=== PATIENT | male | born 1960 | race American Indian/Alaskan Native ===

== ENCOUNTER 2018-03-23 17:03 | Emergency (ER) | payer MEDICARE ==
[2018-03-23] MEDS ORDERED: Clindamycin Phosphate 900 MG in Sodium Chloride 0.9% 100 ML IV ONE (19:10)
[2018-03-23] MEDS ORDERED: Ketorolac 30 MG/ML SDV IVPUSH ONE (19:11)
--- NOTE | 2018-03-23 19:14 | EDM.PDOC ---
ED HPI GENERAL MEDICAL PROBLEM - General Chief Complaint: Lower Extremity Injury/Pain Stated Complaint: SWOLLEN LEG [id number] Time Seen by Provider: 03/23/18 19:11 Source of Information: Reports: Patient History Limitations: Reports: No Limitations - History of Present Illness INITIAL COMMENTS - FREE TEXT/NARRATIVE: c/o onset left low leg redness few days ago, worse today. - Related Data Allergies Allergy/AdvReac Type Severity Reaction Status Date / Time No Known Allergies Allergy Verified 03/23/18 17:25 Home Meds: Home Meds . [No Known Home Meds] 03/23/18 [History] Past Medical History - Past Health History Medical/Surgical History: Denies Medical/Surgical History Social & Family History - Tobacco Use Smoking Status *Q: Never Smoker - Caffeine Use Caffeine Use: Reports: Soda, Tea - Recreational Drug Use Recreational Drug Use: No Review of Systems - Review of Systems Review Of Systems: ROS reveals no pertinent complaints other than HPI. ED EXAM, GENERAL - Physical Exam Exam: See Below Exam Limited By: No Limitations General Appearance: Alert, WD/WN, Mild Distress, Other (discomfort) Ears: Hearing Grossly Normal Throat/Mouth: Normal Voice, No Airway Compromise Head: Atraumatic Neck: Non-Tender, Full Range of Motion Respiratory/Chest: No Respiratory Distress Cardiovascular: Regular Rate, Rhythm GI/Abdominal: Soft, Non-Tender Extremities: Other (left low leg swollen erythematous warm no gross lymphagntitis, NV wnl, gait limited to pain) Neurological: Alert, Oriented, Normal Cognition, No Motor/Sensory Deficits Psychiatric: Flat Affect Skin Exam: Warm, Dry, Normal Color Lymphatic: No Adenopathy Course - Vital Signs Last Recorded V/S: Last Vital Signs Temp 37.1 C 03/23/18 20:33 Pulse 84 03/23/18 20:33 Resp 18 03/23/18 20:33 BP 196/104 H 03/23/18 20:33 Pulse Ox 98 03/23/18 20:33 - Orders/Labs/Meds Orders: Active Orders 24 hr Category Date Time Status CULTURE BLOOD [BC] Stat Lab 03/23/18 18:11 Received CULTURE BLOOD [BC] Stat Lab 03/23/18 18:40 Received Blood Culture x2 Reflex Set [OM.PC] Stat Oth 03/23/18 18:01 Ordered Labs: Laboratory Tests 03/23/18 03/23/18 03/23/18 Range/Units 18:11 18:11 18:11 WBC 8.2 (5.0-10.0) 10^3/uL RBC 4.74 (4.6-6.2) 10^6/uL Hgb 13.5 L (14.0-18.0) g/dL Hct 40.3 (40.0-54.0) % MCV 85.0 (80-100) fL MCH 28.5 (27.0-34.0) pg MCHC 33.5 (33.0-35.0) g/dL Plt Count 179 (150-450) 10^3/uL Neut % (Auto) 54.5 (42.2-75.2) % Lymph % (Auto) 36.0 (20.5-50.1) % [place] % (Auto) 7.0 (2-8) % Eos % (Auto) 2.3 (1.0-3.0) % Baso % (Auto) 0.2 (0.0-1.0) % Sodium (135-145) mmol/L Potassium (3.6-5.0) mmol/L Chloride (101-111) mmol/L Carbon Dioxide (21.0-31.0) mmol/L Anion Gap BUN (7-18) mg/dL Creatinine (0.6-1.3) mg/dL Est Cr Clr Drug Dosing Estimated GFR (MDRD) BUN/Creatinine Ratio Glucose (74-105) mg/dL Lactic Acid 1.3 (0.5-2.2) mmol/L Calcium (8.4-10.2) mg/dl Total Bilirubin (0.2-1.0) mg/dL AST (10-42) IU/L ALT (10-60) IU/L Alkaline Phosphatase (42-121) IU/L Troponin I < 0.02 (0.00-0.02) ng/ml Total Protein (6.7-8.2) g/dl Albumin (3.2-5.5) g/dl Globulin Albumin/Globulin Ratio Urine Color (YELLOW) Urine Appearance (CLEAR) Urine pH (5.0-9.0) Ur Specific [place] (1.005-1.030) Urine Protein (NEGATIVE) Urine Glucose (UA) (NEGATIVE) Urine Ketones (NEGATIVE) Urine Occult Blood (NEGATIVE) Urine Nitrite (NEGATIVE) Urine Bilirubin (NEGATIVE) Urine Urobilinogen (0.2-1.0) mg/dL Ur Leukocyte Esterase (NEGATIVE) Urine RBC /HPF Urine WBC (0-5/HPF) /HPF Ur Epithelial Cells /HPF Urine Bacteria (0-FEW/HPF) /HPF 03/23/18 03/23/18 Range/Units 18:11 19:21 WBC (5.0-10.0) 10^3/uL RBC (4.6-6.2) 10^6/uL Hgb (14.0-18.0) g/dL Hct (40.0-54.0) % MCV (80-100) fL MCH (27.0-34.0) pg MCHC (33.0-35.0) g/dL Plt Count (150-450) 10^3/uL Neut % (Auto) (42.2-75.2) % Lymph % (Auto) (20.5-50.1) % [place] % (Auto) (2-8) % Eos % (Auto) (1.0-3.0) % Baso % (Auto) (0.0-1.0) % Sodium 142 (135-145) mmol/L Potassium 3.6 (3.6-5.0) mmol/L Chloride 109 (101-111) mmol/L Carbon Dioxide 25.0 (21.0-31.0) mmol/L Anion Gap 11.6 BUN 12 (7-18) mg/dL Creatinine 1.4 H (0.6-1.3) mg/dL Est Cr Clr Drug Dosing TNP Estimated GFR (MDRD) 53 BUN/Creatinine Ratio 8.57 Glucose 110 H (74-105) mg/dL Lactic Acid (0.5-2.2) mmol/L Calcium 8.7 (8.4-10.2) mg/dl Total Bilirubin 0.6 (0.2-1.0) mg/dL AST 27 (10-42) IU/L ALT 27 (10-60) IU/L Alkaline Phosphatase 117 (42-121) IU/L Troponin I (0.00-0.02) ng/ml Total Protein 7.5 (6.7-8.2) g/dl Albumin 3.7 (3.2-5.5) g/dl Globulin 3.8 Albumin/Globulin Ratio 0.97 Urine Color Yellow (YELLOW) Urine Appearance Clear (CLEAR) Urine pH 6.5 (5.0-9.0) Ur Specific [place] 1.015 (1.005-1.030) Urine Protein >=300 H (NEGATIVE) Urine Glucose (UA) Negative (NEGATIVE) Urine Ketones Negative (NEGATIVE) Urine Occult Blood Small H (NEGATIVE) Urine Nitrite Negative (NEGATIVE) Urine Bilirubin Negative (NEGATIVE) Urine Urobilinogen 0.2 (0.2-1.0) mg/dL Ur Leukocyte Esterase Negative (NEGATIVE) Urine RBC 5-10 H /HPF Urine WBC 0-5 (0-5/HPF) /HPF Ur Epithelial Cells Few /HPF Urine Bacteria Few (0-FEW/HPF) /HPF Meds: Medications Discontinued Medications Generic Name Dose Route Start Last Admin Trade Name Freq PRN Reason Stop Dose Admin Clonidine HCl 0.1 mg 03/23/18 19:50 03/23/18 19:57 Catapres PO 03/23/18 19:51 0.1 mg ONETIME ONE Administration Clindamycin Phosphate 900 mg/ 106 mls @ 200 mls/hr 03/23/18 19:10 03/23/18 19 :18 Sodium Chloride IV 03/23/18 19:41 200 mls/hr ONETIME ONE Administration Iopamidol 75 ml 03/23/18 19:30 03/23/18 19:49 Isovue-300 (61%) IVPUSH 03/23/18 19:31 100 ml ONETIME ONE Administration Ketorolac Tromethamine 15 mg 03/23/18 19:11 03/23/18 19:18 Toradol IVPUSH 03/23/18 19:12 15 mg ONETIME ONE Administration - Re-Assessments/Exams Free Text/Narrative Re-Assessment/Exam: 03/23/18 21:[address] Ernandez who arrived and evaluated pt and discussed Tx plan and they all agreed. Departure - Departure Time of Disposition: 21:39 Disposition: Home, Self-Care 01 Condition: Fair Clinical Impression: Cellulitis Qualifiers: Site of cellulitis: extremity Site of cellulitis of extremity: lower extremity Laterality: left Qualified Code(s): L03.116 - Cellulitis of left lower limb - Discharge Information Instructions: Cellulitis, Adult, [id number] Forms: ED Department Discharge Additional Instructions: 1) elevate leg as much as possible 2) take tylenol or motrin as needed 3) follow up at clinic for HIGH BLOOD PRESSURE. 4) return if there is any change or concern rx given; clindamycin 150mg qid x 40 catapress 0.1mg daily x 6
[2018-03-23 19:25] LABS: ANION GAP 11.6; CHLORIDE,CL 109 mmol/L (101-111); SODIUM,NA 142 mmol/L (135-145)
[2018-03-23] MEDS ORDERED: Iopamidol 612 MG/ML 75 ML Bottle IVPUSH ONE (19:30)
[2018-03-23] MEDS ORDERED: cloNIDine 0.1 MG Tab PO ONE (19:50)
== END 2018-03-23 21:49 | disposition home or self-care (01) ==
LOC: DL.ED 17:03
DX: L03.116 Cellulitis of left lower limb (principal)
CPT/HCPCS: 36415; 73701; 80053; 81001; 83605; 84484; 85025; 87040; 96365; 96375; 99284; A9270; J1885; J3490; J7050; Q9967; 99283

== ENCOUNTER 2018-04-03 12:19 | Emergency (ER) | payer MEDICARE, OTHER ==
[2018-04-03 13:21] LABS: ANION GAP 12.7; CHLORIDE,CL 109 mmol/L (101-111); SODIUM,NA 139 mmol/L (135-145)
--- NOTE | 2018-04-03 14:08 | EDM.PDOC ---
<HumphreysBrit - Last Filed: 04/04/18 03:08> ED HPI GENERAL MEDICAL PROBLEM - General Chief Complaint: General Stated Complaint: IN BY AMBULANCE Time Seen by Provider: 04/03/18 13:50 - Related Data Allergies Allergy/AdvReac Type Severity Reaction Status Date / Time No Known Allergies Allergy Verified 03/23/18 17:25 Home Meds: Home Meds Aspirin [Adult Low Dose Aspirin EC] 81 mg PO DAILY 04/03/18 [History] Furosemide 20 mg PO DAILY 04/03/18 [History] Losartan [Cozaar] 50 mg PO DAILY 04/03/18 [History] Course - Vital Signs Last Recorded V/S: Last Vital Signs Temp 36.7 C 04/03/18 20:38 Pulse 77 04/03/18 21:09 Resp 17 04/03/18 21:09 BP 179/108 H 04/03/18 21:14 Pulse Ox 100 04/03/18 21:09 - Orders/Labs/Meds Labs: Laboratory Tests 04/03/18 04/03/18 Range/Units 12:55 12:55 WBC 7.6 (5.0-10.0) 10^3/uL RBC 5.04 (4.6-6.2) 10^6/uL Hgb 14.2 (14.0-18.0) g/dL Hct 42.7 (40.0-54.0) % MCV 84.7 (80-100) fL MCH 28.2 (27.0-34.0) pg MCHC 33.3 (33.0-35.0) g/dL Plt Count 159 (150-450) 10^3/uL Neut % (Auto) 65.9 (42.2-75.2) % Lymph % (Auto) 27.2 (20.5-50.1) % [place] % (Auto) 4.8 (2-8) % Eos % (Auto) 1.6 (1.0-3.0) % Baso % (Auto) 0.5 (0.0-1.0) % Sodium 139 (135-145) mmol/L Potassium 3.7 (3.6-5.0) mmol/L Chloride 109 (101-111) mmol/L Carbon Dioxide 21.0 (21.0-31.0) mmol/L Anion Gap 12.7 BUN 18 (7-18) mg/dL Creatinine 1.3 (0.6-1.3) mg/dL Est Cr Clr Drug Dosing 53.76 mL/min Estimated GFR (MDRD) 57 BUN/Creatinine Ratio 13.84 Glucose 99 (74-105) mg/dL Calcium 8.8 (8.4-10.2) mg/dl Total Bilirubin 1.1 H (0.2-1.0) mg/dL AST 40 (10-42) IU/L ALT 44 (10-60) IU/L Alkaline Phosphatase 114 (42-121) IU/L Troponin I < 0.02 (0.00-0.02) ng/ml Total Protein 7.4 (6.7-8.2) g/dl Albumin 3.9 (3.2-5.5) g/dl Globulin 3.5 Albumin/Globulin Ratio 1.11 Meds: Medications Discontinued Medications Generic Name Dose Route Start Last Admin Trade Name Freq PRN Reason Stop Dose Admin Hydralazine HCl 10 mg 04/03/18 18:23 04/03/18 18:40 Apresoline IVPUSH 04/03/18 18:24 10 mg ONETIME ONE Administration Labetalol HCl 10 mg 04/03/18 19:28 04/03/18 19:43 Normodyne IVPUSH 04/03/18 19:29 10 mg ONETIME ONE Administration Protocol Labetalol HCl 10 mg 04/03/18 20:35 04/03/18 20:37 Normodyne IVPUSH 04/03/18 20:36 10 mg ONETIME ONE Administration Protocol Metoprolol Tartrate 25 mg 04/03/18 14:01 04/03/18 14:10 Lopressor PO 04/03/18 14:02 25 mg ONETIME ONE Administration Metoprolol Tartrate 25 mg 04/03/18 16:16 04/03/18 16:26 Lopressor PO 04/03/18 16:17 25 mg ONETIME ONE Administration - Re-Assessments/Exams Free Text/Narrative Re-Assessment/Exam: 04/04/18 03:07 Discussed patient case with Dr. Rosa who agreed to accept the patient for transfer. Departure - Departure Time of Disposition: 21:37 Disposition: DC/Tfer to Acute Hospital 02 Condition: Fair Clinical Impression: Hypertension Qualifiers: Hypertension type: unspecified Qualified Code(s): I10 - Essential (primary) hypertension - Discharge Information *PRESCRIPTION DRUG MONITORING PROGRAM REVIEWED*: No *COPY OF PRESCRIPTION DRUG MONITORING REPORT IN PATIENT BRAYDON: No Referrals: Aron Bolton MD [Primary Care Provider] - Forms: ED Department Discharge, Interfacility Transfer L[place] <Kervin Pizarro - Last Filed: 04/06/18 09:08> ED HPI GENERAL MEDICAL PROBLEM - General Source of Information: Reports: Patient History Limitations: Reports: No Limitations - History of Present Illness INITIAL COMMENTS - FREE TEXT/NARRATIVE: This 57 yo male patient was brought to the ED by [facility] due to high blood pressure. The patient reports that they had a home health nurse visit his home. She advised the patient that his blood pressure was too high and advised him to go to the ED. The patient's family report that the patient was started on Losartan, HCTZ and aspirin within the past week. The patient reports that he has an appointment with the computer software engineer next month, but does not have a scheduled follow-up appointment with Dr. Bolton with [facility]. Onset: Today Duration: Constant Location: Reports: Other Quality: Reports: Other Severity: Mild Improves with: Reports: None Worsens with: Reports: None Associated Symptoms: Reports: No Other Symptoms Past Medical History - Past Health History Medical/Surgical History: Denies Medical/Surgical History HEENT History: Reports: None Cardiovascular History: Reports: Hypertension Respiratory History: Reports: None Gastrointestinal History: Reports: None Genitourinary History: Reports: None Musculoskeletal History: Reports: None Neurological History: Reports: None Psychiatric History: Reports: None Endocrine/Metabolic History: Reports: None Hematologic History: Reports: None Immunologic History: Reports: None Oncologic (Cancer) History: Reports: None Dermatologic History: Reports: None Social & Family History - Tobacco Use Smoking Status *Q: Never Smoker Second Hand Smoke Exposure: No - Caffeine Use Caffeine Use: Reports: Tea - Recreational Drug Use Recreational Drug Use: No ED ROS GENERAL - Review of Systems Review Of Systems: ROS reveals no pertinent complaints other than HPI. ED EXAM, GENERAL - Physical Exam Exam: See Below Exam Limited By: No Limitations General Appearance: Alert, WD/WN, No Apparent Distress Eye Exam: Bilateral Eye: EOMI, Normal Inspection, PERRL Ears: Normal External Exam, Normal Canal, Hearing Grossly Normal, Normal TMs Nose: Normal Inspection, Normal Mucosa, No Blood Throat/Mouth: Normal Inspection, Normal Lips, Normal Teeth, Normal Gums, Normal Oropharynx, Normal Voice, No Airway Compromise Head: Atraumatic, Normocephalic Neck: Normal Inspection, Supple, Non-Tender, Full Range of Motion Respiratory/Chest: No Respiratory Distress, Lungs Clear, Normal Breath Sounds, No Accessory Muscle Use, Chest Non-Tender Cardiovascular: Normal Peripheral Pulses, Regular Rate, Rhythm, No Edema, No Gallop, No JVD, No Murmur, No Rub GI/Abdominal: Normal Bowel Sounds, Soft, Non-Tender, No Organomegaly, No Distention, No Abnormal Bruit, No Mass (Male) Exam: Deferred Rectal (Males) Exam: Deferred Back Exam: Normal Inspection, Full Range of Motion, NT Extremities: Normal Inspection, Normal Range of Motion, Non-Tender, Normal Capillary Refill, No Pedal Edema Neurological: Alert, Oriented, CN II-XII Intact, Normal Cognition, Normal Gait, Normal Reflexes, No Motor/Sensory Deficits Psychiatric: Normal Affect, Normal Mood Skin Exam: Warm, Dry, Intact, Normal Color, No Rash Lymphatic: No Adenopathy
[2018-04-03] MEDS: Metoprolol Tartrate 25 MG Tab PO ONE ×2 (14:10→16:26)
[2018-04-03] MEDS: hydrALAZINE 20 MG/ML SDV IVPUSH ONE (18:40)
[2018-04-03] MEDS: Labetalol 100 MG/20 ML MDV IVPUSH ONE ×2 (19:43→20:37)
--- NOTE | 2018-04-04 08:45 | CR ---
Clinical history: 57-year-old male emergency department with "high blood pressure". Interpretation: Upright AP portable chest film unremarkable. Normal cardiac silhouette and left-sided aortic arch. No cephalization of vascular flow, signs of alveolar edema or dependent pleural fluid accumulation. No lung mass, hilar lymphadenopathy or focal lobar pneumonia. No atelectasis/collapse. No pneumothorax.
== END 2018-04-03 22:03 ==
LOC: DL.ED 12:19
DX: I10 Essential (primary) hypertension (principal); Z79.82 Long term (current) use of aspirin; Z79.899 Other long term (current) drug therapy
CPT/HCPCS: 36415; 71045; 80053; 84484; 85025; 93005; 93010; 96374; 96375; 96376; 99285; A9270; J0360; J3490

== ENCOUNTER 2025-06-05 06:22 | Day surgery (SDC) | payer MEDICARE, MEDICAID ==
[2025-06-05] MEDS ORDERED: Propofol 200 MG/20 ML SDV IV ONE (06:23)
[2025-06-05] MEDS: Lactated Ringers 1,000 ML IV SCH (06:45)
[2025-06-05] MEDS ORDERED: Propofol 200 MG/20 ML SDV ONE (09:38)
== END 2025-06-05 10:21 | disposition home or self-care (01) ==
LOC: DL.ENDO 06:22
PROVIDERS: ATTEND Internal Medicine Gastroenterology
DX: K29.50 Unspecified chronic gastritis without bleeding (principal); B96.81 Helicobacter pylori [H. pylori] as the cause of diseases classified elsewhere; K31.7 Polyp of stomach and duodenum; E66.9 Obesity, unspecified; I10 Essential (primary) hypertension; Z68.41 Body mass index [BMI] 40.0-44.9, adult; Z79.82 Long term (current) use of aspirin; Z79.899 Other long term (current) drug therapy
CPT/HCPCS: 88305; J2003; J2704; J7120